=== PATIENT | female | born 1945 | race Caucasian/White ===

== ENCOUNTER 2016-07-01 13:59 | Inpatient (IN) | payer OTHER ==
[~2016-07-01] VITALS: Ht 147.3 cm; Wt 54.5 kg
[2016-07-01 15:56] LABS: CALCIUM 9.5 mg/dL (8.5-10.1); CARBON DIOXIDE 22.6 mmol/L (21-32); CHLORIDE SERUM 105 mmol/L (98-107); CREATININE SERUM 0.8 mg/dL (0.6-1.0); GLUCOSE SERUM 81 mg/dL (74-106); PLATELET COUNT 310 x10^3mcL (130-400); POTASSIUM SERUM 3.4 mmol/L (3.5-5.1); SODIUM SERUM 140 mmol/L (136-145)
[2016-07-01 16:00] LABS: ALBUMIN 3.5 g/dL (3.4-5.0); ALKALINE PHOSPHATASE 96 U/L (46-116); ALT/SGPT 12 U/L (14-59); AST/SGOT 13 U/L (15-37); BILIRUBIN TOTAL 0.5 mg/dL (0.20-1.00); CHOLESTEROL 182 mg/dL (<200); TOTAL PROTEIN, SERUM 7.1 g/dL (6.4-8.2)
[2016-07-01 16:01] LABS: BASOPHIL % 3.4 % (0-2); RED CELL DISTRIBUTION WIDTH 15.2 % (11.5-14.5)
[2016-07-01] MEDS ORDERED: WELLBUTRIN SR200 MG (17:04)
[2016-07-01] MEDS ORDERED: AMLODIPINE BES2.5 M1 (17:04)
[2016-07-01 18:22] VITALS: BP 143/70
[2016-07-01 18:33] LABS: CHOLESTEROL/HDL RATIO 1.9
[2016-07-01 18:39] LABS: T3 TOTAL 0.97 ng/mL
[2016-07-01 18:41] LABS: FREE T4 1.29 ng/dL (0.76-1.46); FREE THYROXINE INDEX 3.6 ug/dL (1.4-4.5); T4(THYROXINE) 9.2 ug/dL (4.7-13.3)
[2016-07-01 20:29] VITALS: BP 133/70
[2016-07-02 05:50] VITALS: BP 147/79
[2016-07-02 07:44] LABS: BASOPHIL % 0.5 % (0-2); PLATELET COUNT 287 x10^3mcL (130-400)
[2016-07-02 07:53] LABS: RED CELL DISTRIBUTION WIDTH 15.5 % (11.5-14.5)
[2016-07-02 08:16] LABS: CALCIUM 8.9 mg/dL (8.5-10.1); CARBON DIOXIDE 22.3 mmol/L (21-32); CHLORIDE SERUM 106 mmol/L (98-107); CREATININE SERUM 0.8 mg/dL (0.6-1.0); GLUCOSE SERUM 76 mg/dL (74-106); MAGNESIUM 1.8 mg/dL (1.8-2.4); PHOSPHOROUS 4.1 mg/dL (2.5-4.9); POTASSIUM SERUM 4.2 mmol/L (3.5-5.1); SODIUM SERUM 140 mmol/L (136-145)
[2016-07-02 09:33] VITALS: BP 155/68
[2016-07-02 09:39] LABS: microscopic required? YES; urine erythrocyte NEGATIVE (NEGATIVE)
[2016-07-02 09:48] LABS: AMPHETAMINE QUAL UR NONE DETECTED (NEG <=1000)
[2016-07-02 12:53] VITALS: BP 154/68
[2016-07-02 17:20] VITALS: BP 134/62
[2016-07-02 21:48] VITALS: BP 145/73
[2016-07-03 05:59] LABS: BASOPHIL % 1.3 % (0-2); PLATELET COUNT 321 x10^3mcL (130-400)
[2016-07-03 06:31] LABS: CARBON DIOXIDE 27.2 mmol/L (21-32); CHLORIDE SERUM 109 mmol/L (98-107); CREATININE SERUM 0.7 mg/dL (0.6-1.0); GLUCOSE SERUM 82 mg/dL (74-106); POTASSIUM SERUM 4.1 mmol/L (3.5-5.1); SODIUM SERUM 145 mmol/L (136-145)
[2016-07-03 06:32] LABS: CALCIUM 9.3 mg/dL (8.5-10.1); MAGNESIUM 1.6 mg/dL (1.8-2.4); PHOSPHOROUS 4.4 mg/dL (2.5-4.9)
[2016-07-03 06:37] LABS: RED CELL DISTRIBUTION WIDTH 15.2 % (11.5-14.5)
[2016-07-03 06:39] VITALS: BP 160/52
[2016-07-03 10:18] VITALS: BP 133/52
[2016-07-03 11:49] VITALS: Ht 147.3 cm; Wt 54.5 kg
[2016-07-03 14:47] VITALS: BP 117/63
[2016-07-03] MEDS ORDERED: HIBICLENS118 ML TOP (15:01)
[2016-07-03] MEDS ORDERED: ELA25 PO (15:01)
[2016-07-03] MEDS ORDERED: WELSR100 PO (15:01)
[2016-07-03] MEDS ORDERED: NEU300 PO ×2 (15:01→15:19)
[2016-07-03] MEDS ORDERED: BACO TOP (15:01)
[2016-07-03] MEDS ORDERED: GOOD SENSE OMEP20 MG PO (15:04)
[2016-07-03] MEDS ORDERED: METAMUCIL660 GM PO (15:04)
[2016-07-03 15:23] VITALS: BP 117/63
[2016-07-03 17:22] VITALS: BP 122/79
[2016-07-03 21:57] VITALS: BP 141/56
[2016-07-04 06:19] LABS: BASOPHIL % 0.8 % (0-2); PLATELET COUNT 278 x10^3mcL (130-400)
[2016-07-04 06:21] LABS: RED CELL DISTRIBUTION WIDTH 15.4 % (11.5-14.5)
[2016-07-04 06:36] VITALS: BP 136/64
[2016-07-04 06:50] LABS: CHLORIDE SERUM 109 mmol/L (98-107); CREATININE SERUM 0.8 mg/dL (0.6-1.0); GLUCOSE SERUM 91 mg/dL (74-106); MAGNESIUM 1.7 mg/dL (1.8-2.4); PHOSPHOROUS 4.4 mg/dL (2.5-4.9); POTASSIUM SERUM 4.4 mmol/L (3.5-5.1); SODIUM SERUM 142 mmol/L (136-145)
[2016-07-04 08:28] VITALS: BP 137/54
[2016-07-04 13:41] VITALS: BP 137/54
== END 2016-07-04 14:33 | disposition home or self-care (01) | DRG 380 ==
LOC: ED 13:59 → MU 16:49 → DU 16:49 → MU 07-03 16:56
PROVIDERS: Family Medicine; Internal Medicine Gastroenterology; Specialist; ADMIT Family Medicine
PROC: 0DB68ZX Excision of Stomach, Via Natural or Artificial Opening Endoscopic, Diagnostic (ICD-10-PCS; principal; 2016-07-03 12:30)
PROC: 0DJD8ZZ Inspection of Lower Intestinal Tract, Via Natural or Artificial Opening Endoscopic (ICD-10-PCS; 2016-07-03 12:30)
DX: K22.10 Ulcer of esophagus without bleeding (principal); N17.0 Acute kidney failure with tubular necrosis; N39.0 Urinary tract infection, site not specified; E44.0 Moderate protein-calorie malnutrition; M99.51 Intervertebral disc stenosis of neural canal of cervical region; K44.9 Diaphragmatic hernia without obstruction or gangrene; F43.22 Adjustment disorder with anxiety; E83.42 Hypomagnesemia; E87.6 Hypokalemia; I10 Essential (primary) hypertension; K76.0 Fatty (change of) liver, not elsewhere classified; K57.30 Diverticulosis of large intestine without perforation or abscess without bleeding; Z59.0 Homelessness; Z68.25 Body mass index [BMI] 25.0-25.9, adult; Z87.11 Personal history of peptic ulcer disease; Z87.891 Personal history of nicotine dependence
CPT/HCPCS: 43235; 45378; 80307; 83880; 84439; 90658; 90732; 97110-GP; G0480; J0696; J1200; J1610; J2250; J2310; J3010; J3360; J3490; J7030; Q0092

== ENCOUNTER 2016-08-20 03:42 | Inpatient (IN) | payer OTHER ==
[~2016-08-20] VITALS: Ht 149.9 cm; Wt 57.9 kg
[~2016-08-20 03:42] MED LIST: AMLODIPINE BES2.5 M1; BACO TOP; ELA25 PO; GOOD SENSE OMEP20 MG PO; HIBICLENS118 ML TOP; METAMUCIL660 GM PO; NEU300 PO; WELLBUTRIN SR200 MG; WELSR100 PO
[2016-08-20] MEDS ORDERED: AMITRIPTYLINE H25 MG PO (05:52)
[2016-08-20] MEDS ORDERED: NORCO1 TA2 PO (05:52)
[2016-08-20] MEDS ORDERED: NOR10 PO (05:53)
[2016-08-20] MEDS ORDERED: XANAX XR1 M1 PO (05:53)
[2016-08-20] MEDS ORDERED: BUPROPION HYDR300 MG PO (05:53)
[2016-08-20] MEDS ORDERED: GOOD SENSE OMEP20 MG PO (05:53)
[2016-08-20] MEDS ORDERED: IBUPROFEN400 MG PO (05:54)
[2016-08-20 06:18] LABS: BASOPHIL % 0.8 % (0-2); CALCIUM 9.4 mg/dL (8.5-10.1); CARBON DIOXIDE 23.6 mmol/L (21-32); CHLORIDE SERUM 105 mmol/L (98-107); CREATININE SERUM 0.7 mg/dL (0.6-1.0); GLUCOSE SERUM 92 mg/dL (74-106); PLATELET COUNT 338 x10^3mcL (130-400); POTASSIUM SERUM 4.1 mmol/L (3.5-5.1); SODIUM SERUM 140 mmol/L (136-145)
[2016-08-20 06:19] LABS: RED CELL DISTRIBUTION WIDTH 15.1 % (11.5-14.5)
[2016-08-20 06:22] LABS: ALBUMIN 3.7 g/dL (3.4-5.0); ALKALINE PHOSPHATASE 113 U/L (46-116); ALT/SGPT 17 U/L (14-59); AST/SGOT 24 U/L (15-37); BILIRUBIN TOTAL 0.58 mg/dL (0.20-1.00); TOTAL PROTEIN, SERUM 7.3 g/dL (6.4-8.2)
[2016-08-20 07:59] VITALS: BP 174/86
[2016-08-20 12:31] VITALS: BP 123/88
[2016-08-20 12:52] LABS: PHOSPHOROUS 4.4 mg/dL (2.5-4.9)
[2016-08-20 13:02] LABS: FREE T4 1.09 ng/dL (0.76-1.46); FREE THYROXINE INDEX 2.6 ug/dL (1.4-4.5); T4(THYROXINE) 7.6 ug/dL (4.7-13.3)
[2016-08-20 13:04] LABS: T3 TOTAL 0.93 ng/mL
[2016-08-20 14:41] VITALS: BP 119/71
[2016-08-20 17:40] VITALS: BP 135/59
[2016-08-20 18:06] LABS: microscopic required? YES; urine erythrocyte NEGATIVE (NEGATIVE)
[2016-08-20 20:44] VITALS: BP 105/47
[2016-08-21 07:02] LABS: BASOPHIL % 0.3 % (0-2); PLATELET COUNT 332 x10^3mcL (130-400)
[2016-08-21 07:07] LABS: RED CELL DISTRIBUTION WIDTH 15.1 % (11.5-14.5)
[2016-08-21 07:38] LABS: CALCIUM 9.3 mg/dL (8.5-10.1); CARBON DIOXIDE 19.6 mmol/L (21-32); CHLORIDE SERUM 109 mmol/L (98-107); CHOLESTEROL 192 mg/dL (<200); CREATININE SERUM 0.7 mg/dL (0.6-1.0); GLUCOSE SERUM 156 mg/dL (74-106); POTASSIUM SERUM 4.1 mmol/L (3.5-5.1); SODIUM SERUM 140 mmol/L (136-145); TRIGLYCERIDES 38 mg/dL (<150)
[2016-08-21 07:56] LABS: CHOLESTEROL/HDL RATIO 1.8; HDL CHOLESTEROL 109 mg/dL (40-60)
[2016-08-21 09:34] VITALS: BP 117/54
[2016-08-21 10:15] LABS: AMPHETAMINE QUAL UR POSITIVE (NEG <=1000)
[2016-08-21 13:35] VITALS: BP 91/69
[2016-08-21 17:23] VITALS: BP 138/64
[2016-08-21 21:12] VITALS: BP 110/41
[2016-08-22 06:20] VITALS: BP 121/59
[2016-08-22 07:16] LABS: PLATELET COUNT 385 x10^3mcL (130-400)
[2016-08-22 07:17] LABS: RED CELL DISTRIBUTION WIDTH 15.8 % (11.5-14.5)
[2016-08-22 10:30] VITALS: BP 145/80
[2016-08-22 11:15] LABS: MONOCYTE 3 % (0-7); SEGMENTED NEUTROPHILS 81 % (37-75)
[2016-08-22 11:16] LABS: ATYPICAL LYMPH 1 %; BAND NEUTROPHIL 5 % (0-10); BASOPHIL 0 % (0-2); MYELOCYTE 1 % (0-2); rbc morphology (normal/abnorm) NORMAL (NORMAL)
[2016-08-22 11:17] LABS: PLATELET MORPHOLOGY PLATELETS NORMAL
[2016-08-22 17:48] VITALS: BP 147/83
[2016-08-22 21:37] VITALS: BP 124/58
[2016-08-23] VITALS (11 sets, daily range): BP systolic 126–157; BP diastolic 59–110
[2016-08-23 04:49] LABS: BASOPHIL % 0.1 % (0-2); PLATELET COUNT 330 x10^3mcL (130-400)
[2016-08-23 04:57] LABS: CALCIUM 9.1 mg/dL (8.5-10.1); CARBON DIOXIDE 23.8 mmol/L (21-32); CHLORIDE SERUM 110 mmol/L (98-107); CREATININE SERUM 0.9 mg/dL (0.6-1.0); GLUCOSE SERUM 142 mg/dL (74-106); PHOSPHOROUS 3.6 mg/dL (2.5-4.9); POTASSIUM SERUM 4.2 mmol/L (3.5-5.1); SODIUM SERUM 145 mmol/L (136-145)
[2016-08-23 05:01] LABS: RED CELL DISTRIBUTION WIDTH 15.9 % (11.5-14.5)
[2016-08-23] MEDS ORDERED: MEDDP PO (11:40)
[2016-08-23] MEDS ORDERED: LEVAQUIN500 M1 PO (11:44)
[2016-08-23] MEDS ORDERED: LAC PO (11:45)
[2016-08-23] MEDS ORDERED: VENTOLIN H0.09 MG/A1 INH (13:18)
[2016-08-23] MEDS ORDERED: SPIRIVA18 MC1 INH (16:05)
== END 2016-08-23 20:25 | disposition home or self-care (01) | DRG 166 ==
LOC: ED 03:42 → MU 06:03 → DU 06:03 → MU 20:15 → DU 08-22 16:47 → MU 08-23 08:30
PROVIDERS: Emergency Medicine; Surgery; ADMIT Family Medicine
PROC: 0JB50ZZ Excision of Left Neck Subcutaneous Tissue and Fascia, Open Approach (ICD-10-PCS; principal; 2016-08-22 10:15)
PROC: 0GBG3ZX Excision of Left Thyroid Gland Lobe, Percutaneous Approach, Diagnostic (ICD-10-PCS; 2016-08-23)
DX: J44.1 Chronic obstructive pulmonary disease with (acute) exacerbation (principal); N17.0 Acute kidney failure with tubular necrosis; G93.41 Metabolic encephalopathy; N39.0 Urinary tract infection, site not specified; K21.9 Gastro-esophageal reflux disease without esophagitis; F41.1 Generalized anxiety disorder; E04.1 Nontoxic single thyroid nodule; D17.0 Benign lipomatous neoplasm of skin and subcutaneous tissue of head, face and neck; I10 Essential (primary) hypertension; J45.909 Unspecified asthma, uncomplicated; M17.0 Bilateral primary osteoarthritis of knee; N39.3 Stress incontinence (female) (male); G30.9 Alzheimer's disease, unspecified; F02.80 Dementia in other diseases classified elsewhere, unspecified severity, without behavioral disturbance, psychotic disturbance, mood disturbance, and anxiety; F41.0 Panic disorder [episodic paroxysmal anxiety]; Z68.25 Body mass index [BMI] 25.0-25.9, adult; Z87.891 Personal history of nicotine dependence; Z79.1 Long term (current) use of non-steroidal anti-inflammatories (NSAID); Z66 Do not resuscitate
CPT/HCPCS: 80307; 84439; 94150; J1885; J1956; J2001; J2920; J3010; J3490; J7030; J7620; Q0092; Q0162